=== PATIENT | male | born 1980 | race Asian ===

== ENCOUNTER → 2024-05-20 09:06 | Outpatient (REF) | payer BC, SELFPAY | LOC: DHSLP 09:06 | PROVIDERS: ATTENDING PHYSICIAN Student in an Organized Health Care Education/Training Program | DX: G47.33 Obstructive sleep apnea (adult) (pediatric) (principal) | CPT/HCPCS: 95800 ==

== ENCOUNTER 2024-11-20 21:42 | Emergency (ER) | payer BC, SELFPAY ==
[2024-11-20 21:47] VITALS: BP 130/97
[2024-11-20 22:19] LABS: % Basophils 0.3 % (0-2); % Eosinophils 2.8 % (0-6); % Immature Granulocytes 0.6 % (0-0.5); % Lymphocytes 20.2 % (20.5-51.1); % Monocytes 6.8 % (1.7-9.3); % Neutrophils 69.3 % (42.2-75.2); Absolute Eosinophils 0.3 10^3/uL (0-0.7); Absolute Immature Granulocytes 0.1 10^3/uL (0-0.05); Absolute Monocytes 0.7 10^3/uL (0.1-0.6); Absolute Neutrophils 6.7 10^3/uL (1.4-6.5); Hematocrit 45.6 % (39.0-52.0); Hemoglobin 15.4 g/dL (13.0-18.0); Mean Corp Hgb Conc. 33.8 g/dL (33.0-37.0); Mean Corpuscular Hgb 27.7 pg (27.0-31.0); Mean Corpuscular Volume 82.2 fL (80.0-94.0); Mean Platelet Volume 8.5 fL (7.4-10.4); Nucleated Red Blood Cells % 0 % (-); Platelet Count 309 10^3/uL (130-400); Red Blood Cell Count 5.55 10^6/uL (4.70-6.10); Red Cell Dist. Width 13.5 % (11.5-14.5); White Blood Cell Count 9.7 10^3/uL (4.8-10.8)
[2024-11-20 22:33] LABS: ALT (SGPT) 25 U/L (0-50); AST (SGOT) 26 U/L (17-59); Albumin 4.3 g/dl (3.5-5.0); Alkaline Phosphatase 116 U/L (38-126); Blood Urea Nitrogen 22 mg/dl (9-20); Carbon Dioxide 32 mmol/L (22-30); Chloride 98 mmol/L (98-107); Glucose 117 mg/dl (70-99); Potassium 3.7 mmol/L (3.5-5.1); Sodium 136 mmol/L (135-145); Total Bilirubin 2.7 mg/dl (0.2-1.3); Total Protein 6.7 g/dl (6.3-8.2); eGFR > 60.00
[2024-11-20 22:38] LABS: Troponin I < 0.012 ng/ml
[2024-11-21 00:27] VITALS: BP 108/88
[2024-11-21 00:36] VITALS: BMI 33.2
--- NOTE | 2024-11-21 00:44 | ED.GENMED ---
History of Present Illness
General
Chief Complaint: Chest Pain
Source: patient
Exam Limitations: none
Time Seen by Provider: 11/21/24 00:20
History of Present Illness
History of Present Illness:
This is a 44 year old male that comes in with multiple complaints. States that he was sick for a week. States that he has had a cough. Today he felt like he was going to pass out and was lightheaded. State that he was at work when this happened and
he was just sitting. State that tonight when he got home he looked at his watch and noticed that his heart rate was 100 most of the day. States that he took his BP and it was 138/92. States that he has had this discomfort in the back of his neck,
into his jaw and in the left chest area. State that this has been going on for a couple of days. States that he has felt SOB with the cough, had diarrhea 2 days ago and was lightheaded.
Denies any fever, chills, abd pain, nausea, vomiting, headache, urinary burning.
Past History
Past History
ED Past Medical History: HTN
ED Past Surgical History: Appendectomy and Urological (Vasectomy)
Social History
Tobacco: Former smoker
Alcohol: None
Personal:
Living: with family
Employment: Employed
Review of Systems
Review of Systems
All Other Systems: ROS reviewed and negative except as documented in HPI and ROS
Constitutional: Reports no symptoms; Denies fever or chills
EENT: Reports no symptoms
Respiratory: Reports cough and trouble breathing
Cardiac: Reports chest pain
ABD/GI: Reports diarrhea (2 days ago); Denies abdominal pain, nausea or vomiting
: Reports no symptoms; Denies dysuria, frequency or urgency
Musculoskeletal: Reports neck pain (Posterior neck pain)
Skin: Reports no symptoms
Neurological: Reports other (Lightheaded); Denies dizzy or headache
Psychiatric: Reports no symptoms
Phy Exam
General Physical Exam
General Presentation: well appearing and no apparent distress
General age: appears stated age
General Skin: warm and dry
General Habitus: normal
General Mental: alert
General Hydration: appears well hydrated
ENT Exam
ENT Exam: TM's normal, pharynx normal and neck supple
Eye Exam
Eye Exam: EOMI
Cardiovascular Exam
Cardiovascular Exam: regular rate/rhythm, no edema, no murmur and normal peripheral pulses
Pulmonary Exam
Pulmonary Exam: lungs clear, no respiratory distress, no rales, chest non tender, no crackles, no rhonchi, no wheezing and other (Dry cough noted)
Gastrointestinal Exam
Gastrointestinal Exam: normal bowel sounds, non tender, soft, no organomegaly, no pulsatile mass and non distended
Musculoskeletal Exam
Musculoskeletal Exam: full ROM and no edema
Skin Exam
Skin Exam: normal color, warm/dry, no rash and no petechia
Psychiatric Exam
Psychiatric Exam: normal mood/affect
Scores
Heart Score for Chest Pain Patients
STEMI patient?: No
History: Slightly or Non-Suspicious
ECG: Normal
Age: >45 - <65 years
Risk Factors: 1 or 2 Risk Factors
Troponin: </= Normal Limit
Heart Score for Chest Pain Patients: 2
Heart Score Risk: 2.5% MACE over next 6 weeks
Course
Orders/Labs/Results
Orders:
Orders
11/20/24 21:49
Electrocardiogram (*1) Urgent
Reason for Study: Chest Pain
EKG- Treatment ONCE
11/20/24 22:03
Complete Blood Count/With Diff Urgent
Comprehensive Metabolic Panel Urgent
Troponin I Urgent
11/21/24 00:44
CR Chest - 2 Views Urgent
Comment:
Reason For Exam: Cough, SOB
11/21/24 00:45
D-Dimer Urgent
Troponin I Urgent
Abnormal Lab Results
11/20/24
22:03
Abs Immat Gran (auto) 0.1 H 10^3/uL
(0-0.05)
Absolute Neuts (auto) 6.7 H 10^3/uL
(1.4-6.5)
Absolute Monos (auto) 0.7 H 10^3/uL
(0.1-0.6)
Immature Gran % 0.6 H %
(0-0.5)
Lymphocytes % 20.2 L %
(20.5-51.1)
Carbon Dioxide 32 H mmol/L
(22-30)
BUN 22 H mg/dl
(9-20)
Glucose 117 H mg/dl
(70-99)
Total Bilirubin 2.7 H mg/dl
(0.2-1.3)
11/20/24 22:03
11/20/24 22:03
Carbon dioxide slightly elevated. Dehydration. Hyperglycemia. Total han elevation. Troponin <0.012
Second Troponin <0.012, D-dimer <0.27,
Vital Signs
Initial and Last Documented VS:
Initial Vital Signs
Temp Pulse Resp BP Pulse Ox
98.4 F 91 16 130/97 98
11/20/24 21:47 11/20/24 21:47 11/20/24 21:47 11/20/24 21:47 11/20/24 21:47
Last Documented Vital Signs
Temp Pulse Resp BP Pulse Ox
98.4 F 74 19 108/88 98
11/20/24 21:47 11/21/24 01:30 11/21/24 01:30 11/21/24 00:27 11/21/24 01:30
MDM/Problems Addressed
Differential Diagnosis Includes:
PNA, PE, Coronary syndrome
MDM/Problems Addressed:
This is a 44 year old male that comes in with c/o SOB, cough, posterior neck pain that comes around to the jaw and chest discomfort. Patient has been sick for a week with a cough. States that today he felt like he was going to pass out.
Will check labs, Chest x-ray. and have patient drink water.
Back into see patient. Explained that his Second Troponin and D-dimer are normal. Encouraged patient to increased his water intake to 8-8oz glasses daily. Patient to follow up with the family doctor. Return with any concerns ,
Chronic conditions affecting care: HTN
Acute Exacerbation and/or Progression of Chronic Illness:
NA
*Radiology
Radiology exam reviewed: preliminary read by ED provider (Chest- Negative for active disease)
*Pulse Oximetry
Patient hypoxic: no
*EKG
Interpreted by ED Provider?: Yes
Heart Rate: 82
Rate: normal
Rhythm: sinus
Ames: normal axis
Interval: normal interval
QRS Pattern: right bundle branch block
Ischemia: no ischemia
*Electric Motor Control Assembler Interpretation
Rate: normal
Heart Rate: 79
Rhythm: sinus
*Critical Care Note
Total Time (30-74mins, 75-104mins- exclusive of procedures): Not Applicable
ED Attending Note
-
Portions of this chart may have been created with voice recognition software.� Occasional wrong word or��sound alike� substitutions may have occurred due to the inherent limitations of voice recognition software.
Discharge Plan
Departure
Patient Disposition: Home (Routine Discharge)
Date of Disposition: 11/21/24
Time of Disposition: 02:05
Patient with high blood pressure during this ER visit?: Yes
Condition: Good
Covid-19: Not Applicable
Discharge Problem:
Dehydration, Chest pain
Instructions: Dehydration in adults - ED discharge instructions, Chest Pain PCP Follow Up, BLOOD PRESSURE
Referrals:
Jevon Major MD, Resident [Family Provider] - Follow up in 2-3 days
Activity Restrictions/Additional Instructions:
As discussed, your blood work shows that you are dehydrated. Your Both Troponin are normal along with your D-dimer. Your chest x-ray is normal. Please increase your water intake to 8-8oz glasses daily. Follow up with the family doctor for recheck.
IF YOU HAVE INCREASED OR CHANGING PAIN, OR YOU HAVE ANY OTHER CONCERNS PLEASE RETURN TO THE EMERGENCY ROOM.
Interventions
Interventions:
*Risk Screen - Suicide Last Done: 11/20/24 21:47
*General Assessment Last Done: 11/20/24 21:47
*Neglect/Abuse Screening Last Done: 11/20/24 21:47
ED- Fall Risk Assessment Last Done: 11/21/24 00:39
*ED COVID-19 Vaccine History Last Done: 11/20/24 21:47
ED- Cardiac Assessment Last Done: 11/21/24 00:39
Discharge Date and Time
Print Language: ROMANSH
[2024-11-21 01:12] LABS: D-Dimer < 0.27 ug/mlFEU (0.00-0.50)
[2024-11-21 01:19] LABS: Troponin I < 0.012 ng/ml
[2024-11-21 02:01] VITALS: BP 132/91
== END 2024-11-21 02:21 | disposition home or self-care (01) ==
LOC: EMR 21:42
PROVIDERS: Clinical Nurse Specialist Family Health; Emergency Medicine; EMERGENCY PHYSICIAN Student in an Organized Health Care Education/Training Program; FAMILY PHYSICIAN Student in an Organized Health Care Education/Training Program
DX: E86.0 Dehydration (principal); R07.89 Other chest pain; R05.9 Cough, unspecified; I10 Essential (primary) hypertension; Z87.891 Personal history of nicotine dependence; Z90.49 Acquired absence of other specified parts of digestive tract
CPT/HCPCS: 99283; 71046; 80053; 84484; 85025; 85379; 93005